=== PATIENT | male | born 1995 | race Caucasian/White ===

== ENCOUNTER 2019-01-14 20:02 | Emergency (ER) | payer OTHER ==
[~2019-01-14] VITALS: Ht 165.1 cm; Wt 64.4 kg
[2019-01-14 20:40] VITALS: Ht 165.1 cm; Wt 64.4 kg
[2019-01-14 22:32] VITALS: BP 118/58
== END 2019-01-14 22:32 | disposition home or self-care (01) ==
LOC: ED 20:02
DX: S09.8XXA Other specified injuries of head, initial encounter (principal); Y08.89XA Assault by other specified means, initial encounter; Y93.89 Activity, other specified; Y92.89 Other specified places as the place of occurrence of the external cause; Y99.8 Other external cause status